=== PATIENT | male | born 1980 | race Caucasian/White ===

== ENCOUNTER 2024-08-01 12:08 | Emergency (ER) | payer BC, SELFPAY ==
[2024-08-01] VITALS (7 sets, daily range): BP systolic 160–181; BP diastolic 104–115; BMI 24.7
[2024-08-01 12:30] LABS: % Basophils 0.4 % (0-2); % Eosinophils 2.3 % (0-6); % Immature Granulocytes 0.1 % (0-0.5); % Lymphocytes 24.4 % (20.5-51.1); % Monocytes 9.5 % (1.7-9.3); % Neutrophils 63.3 % (42.2-75.2); Absolute Eosinophils 0.2 10^3/uL (0-0.7); Absolute Lymphocytes 1.7 10^3/uL (1.2-3.4); Absolute Monocytes 0.7 10^3/uL (0.1-0.6); Absolute Neutrophils 4.5 10^3/uL (1.4-6.5); Hematocrit 33.3 % (39.0-52.0); Hemoglobin 12.4 g/dL (13.0-18.0); Mean Corp Hgb Conc. 37.2 g/dL (33.0-37.0); Mean Corpuscular Hgb 31.9 pg (27.0-31.0); Mean Corpuscular Volume 85.6 fL (80.0-94.0); Mean Platelet Volume 8.9 fL (7.4-10.4); Nucleated Red Blood Cells % 0 % (-); Platelet Count 232 10^3/uL (130-400); Red Blood Cell Count 3.89 10^6/uL (4.70-6.10); Red Cell Dist. Width 12.3 % (11.5-14.5); White Blood Cell Count 7.1 10^3/uL (4.8-10.8)
[2024-08-01 12:49] LABS: ALT (SGPT) 33 U/L (0-50); AST (SGOT) 36 U/L (17-59); Albumin 4.2 g/dl (3.5-5.0); Alkaline Phosphatase 64 U/L (38-126); Blood Urea Nitrogen 29 mg/dl (9-20); Calcium 12.9 mg/dl (8.4-10.2); Carbon Dioxide 33 mmol/L (22-30); Chloride 99 mmol/L (98-107); Glucose 114 mg/dl (70-99); Potassium 3.9 mmol/L (3.5-5.1); Sodium 137 mmol/L (135-145); Total Bilirubin 0.6 mg/dl (0.2-1.3); Total Protein 6.8 g/dl (6.3-8.2); eGFR 41.95
[2024-08-01] MEDS: REGLAN 10 MG IV (13:49)
[2024-08-01] MEDS: NSS 1000 IV (13:49)
--- NOTE | 2024-08-01 13:58 | ED.GENMED ---
History of Present Illness
General
Chief Complaint: Blood Pressure Problem
Source: patient
Exam Limitations: none
Time Seen by Provider: 08/01/24 13:15
Nursing documentation reviewed up to this point in time: agreed with
History of Present Illness
History of Present Illness:
43-year-old male presenting to the emergency department today with concerns of lightheadedness headache has been ongoing for about a week. Initially seemed like a viral syndrome that he got from his child 1 week ago. Symptoms seem to be improving
headache is improving also. Denies any chest pain shortness of breath any changes in bowel movements. Has been drinking plenty of fluids.
Review of Systems
Review of Systems
Allergies reviewed?: Yes
All Other Systems: ROS reviewed and negative except as documented in HPI and ROS
Phy Exam
Physical Exam
Physical Exam:
GENERAL: Alert , in no apparent distress
EYE: pupils equal and reactive
NECK: Supple, no significant adenopathy.
ENT: o/p clr, mmm.
CARDIAC: Regular rate and rhythm .
LUNGS: Clear breath sounds bilaterally, no acute respiratory distress, no wheezes/rales/rhonchi
ABDOMEN: Soft, without focal tenderness, no r/g, no cvat
NEUROLOGICAL: Alert and oriented, no focal neuro deficits
SKIN: Warm and dry, skin intact.
MUSCULOSKELETAL: No edema, well perfused.
PSYCH: Normal and appropriate interaction.
Course
Orders/Labs/Results
Orders:
Orders
08/01/24 12:15
Electrocardiogram (*1) Urgent
Reason for Study: Hypertension, Benign
EKG- Treatment ONCE
08/01/24 12:24
Complete Blood Count/With Diff Urgent
Comprehensive Metabolic Panel Urgent
08/01/24 13:27
0.9% Sodium Chloride 1000 ml [Nss] 1,000 ml IV BOLUS
Metoclopramide [Reglan] 10 mg IV NOW STA
08/01/24 14:46
Urinalysis Reflex To Culture Urgent
Date Specimen was Collected: 08/01/24
Time Specimen was Collected: 14:34
Urine Microscopic Reflex Cult Urgent
Urine Culture Urgent
GINA Source: U
Specimen Description:
Date Specimen was Collected: 08/01/24
Time Specimen was Collected: 14:34
08/01/24 15:20
CT Head W/o Iv Contrast Urgent
Comment:
Reason For Exam: left headache blurred vision
08/01/24 15:30
Amlodipine [Norvasc] 5 mg PO ONCE ONE
08/01/24 15:33
Visual Acuity- Treatment ONCE
Abnormal Lab Results
08/01/24 08/01/24
12:24 14:46
RBC 3.89 L 10^6/uL
(4.70-6.10)
Hgb 12.4 L g/dL
(13.0-18.0)
Hct 33.3 L %
(39.0-52.0)
MCH 31.9 H pg
(27.0-31.0)
MCHC 37.2 H g/dL
(33.0-37.0)
Absolute Monos (auto) 0.7 H 10^3/uL
(0.1-0.6)
Monocytes % 9.5 H %
(1.7-9.3)
Carbon Dioxide 33 H mmol/L
(22-30)
BUN 29 H mg/dl
(9-20)
Creatinine 2.0 H mg/dL
(0.7-1.3)
Glucose 114 H mg/dl
(70-99)
Calcium 12.9 H mg/dl
(8.4-10.2)
Leukocyte Esterase Rfl 1+ A
(Negative)
Urine Bacteria (Reflex) Few A
(Negative)
08/01/24 12:24
08/01/24 12:24
Vital Signs
Initial and Last Documented VS:
Initial Vital Signs
Temp Pulse Resp BP Pulse Ox
98.0 F 95 16 175/104 98
08/01/24 12:13 08/01/24 12:13 08/01/24 12:13 08/01/24 12:13 08/01/24 12:13
Last Documented Vital Signs
Temp Pulse Resp BP Pulse Ox
98.0 F 68 12 174/114 99
08/01/24 12:13 08/01/24 15:51 08/01/24 13:53 08/01/24 15:51 08/01/24 13:53
MDM/Problems Addressed
MDM/Problems Addressed:
43-year-old male presenting to the emergency department today with concerns of elevated blood pressure found in the primary care doctor. Has had upper respiratory symptoms over the past week and somewhat of an ongoing left-sided sinus pressure.
Headache has been improving throughout the day headache is currently very minimal. No nausea vomiting has been drinking plenty of fluids. He admittedly does not follow-up often with the primary care doctor.
*Critical Care Note
Total Time (30-74mins, 75-104mins- exclusive of procedures): Not Applicable
ED Attending Note
-
Portions of this chart may have been created with voice recognition software.� Occasional wrong word or��sound alike� substitutions may have occurred due to the inherent limitations of voice recognition software.
Discharge Plan
Departure
Patient Disposition: Home (Routine Discharge)
Date of Disposition: 08/01/24
Time of Disposition: 17:04
Patient with high blood pressure during this ER visit?: Yes
Condition: Good
Covid-19: Not Applicable
Discharge Problem:
High blood pressure, Headache, Elevated serum creatinine
Instructions: High Blood Pressure (DC)
Prescriptions:
New
amlodipine 5 mg tablet
5 mg PO DAILY 14 Days Qty: 14 0RF
fluticasone propionate [Flonase Allergy Relief] 50 mcg/actuation spray,suspension
1 spray intranasal BID Qty: 16 0RF
No Action
hydrocodone-acetaminophen 1 TABLET tablet
1 - 2 tab PO Q4HPRN PRN (Reason: moderate to severe pain) Qty: 15 0RF
Referrals:
Erickson Gallegos CRNP [Family Provider] -
Activity Restrictions/Additional Instructions:
You came to the emergency department today with concerns of high blood pressure and additional symptoms. Here you had a reassuring assessment but did have elevated renal function test that need to be closely followed up. Please take the prescribed
amlodipine and follow-up with your primary care doctor on Thursday. Return for any worsening, new or concerning symptoms.
Interventions
Interventions:
*Risk Screen - Suicide Last Done: 08/01/24 12:13
*General Assessment Last Done: 08/01/24 13:51
*Neglect/Abuse Screening Last Done: 08/01/24 12:13
ED- Cardiac Assessment Last Done: 08/01/24 13:53
ED- Neurological Assessment Last Done: 08/01/24 13:53
ED- Pulmonary Assessment Last Done: 08/01/24 13:53
Discharge Date and Time
Print Language: BOLIVIAN
[2024-08-01 14:57] LABS: Urine Albumin Negative (Neg - Trace); Urine Bilirubin Negative (Negative); Urine Character Clear (Clear); Urine Glucose Negative (Negative); Urine Ketone Negative (Negative); Urine Leukocyte 1+ (Negative); Urine Nitrite Negative (Negative); Urine Occult Blood Negative (Negative); Urine Specific Gravity 1.015 (<1.030); Urine Urobilinogen Negative (Neg - 1+)
[2024-08-01 15:12] LABS: Urine Red Blood Cell 0-2 /HPF (0-2)
[2024-08-01 15:13] LABS: Urine Bacteria Few (Negative)
[2024-08-01] MEDS: NORVASC 5 MG PO (15:51)
== END 2024-08-01 17:36 | disposition home or self-care (01) ==
LOC: EMR 12:08
PROVIDERS: Emergency Medicine; Physician Assistant; EMERGENCY PHYSICIAN Student in an Organized Health Care Education/Training Program; FAMILY PHYSICIAN Nurse Practitioner Family
DX: R42 Dizziness and giddiness (principal); R51.9 Headache, unspecified
CPT/HCPCS: 99284; 96374; 96361; 70450; 80053; 81003; 81015; 85025; 87086; 93005

== ENCOUNTER → 2024-08-05 13:30 | Outpatient (REF) | payer BC, SELFPAY ==
[2024-08-05 15:18] LABS: % Basophils 0.9 % (0-2); % Eosinophils 2.3 % (0-6); % Immature Granulocytes 0.3 % (0-0.5); % Lymphocytes 23.5 % (20.5-51.1); % Monocytes 9.1 % (1.7-9.3); % Neutrophils 63.9 % (42.2-75.2); Absolute Basophils 0.1 10^3/uL (0-0.2); Absolute Eosinophils 0.2 10^3/uL (0-0.7); Absolute Lymphocytes 1.6 10^3/uL (1.2-3.4); Absolute Monocytes 0.6 10^3/uL (0.1-0.6); Absolute Neutrophils 4.4 10^3/uL (1.4-6.5); Hematocrit 34.1 % (39.0-52.0); Hemoglobin 12.7 g/dL (13.0-18.0); Mean Corp Hgb Conc. 37.2 g/dL (33.0-37.0); Mean Corpuscular Hgb 31.6 pg (27.0-31.0); Mean Corpuscular Volume 84.8 fL (80.0-94.0); Mean Platelet Volume 9.2 fL (7.4-10.4); Nucleated Red Blood Cells % 0 % (-); Platelet Count 312 10^3/uL (130-400); Red Blood Cell Count 4.02 10^6/uL (4.70-6.10); Red Cell Dist. Width 12.2 % (11.5-14.5); White Blood Cell Count 6.9 10^3/uL (4.8-10.8)
[2024-08-05 15:31] LABS: ALT (SGPT) 33 U/L (0-50); AST (SGOT) 29 U/L (17-59); Albumin 5.1 g/dl (3.5-5.0); Alkaline Phosphatase 67 U/L (38-126); Blood Urea Nitrogen 22 mg/dl (9-20); Calcium 11.9 mg/dl (8.4-10.2); Carbon Dioxide 29 mmol/L (22-30); Chloride 97 mmol/L (98-107); Glucose 89 mg/dl (70-99); Iron 98 ug/dl (49-181); Magnesium 1.6 mg/dl (1.6-2.3); Potassium 4.1 mmol/L (3.5-5.1); Sodium 136 mmol/L (135-145); Total Protein 7.4 g/dl (6.3-8.2); eGFR 50.98
[2024-08-05 15:40] LABS: Percent Saturation 31 % (20-50); Total Iron Binding Capacity 309 ug/dl (261-462)
[2024-08-05 15:43] LABS: Vitamin D, 25-OH*** > 126 ng/mL (30-80)
[2024-08-05 15:56] LABS: TSH Reflex To Free T4 1.98 uIU/ml (0.47-4.68)
[2024-08-06 10:49] LABS: Intact PTH 3.7 pg/ml (13.6-85.8)
== END ==
LOC: HWLAB 13:30
PROVIDERS: ATTENDING PHYSICIAN Nurse Practitioner Family
DX: I10 Essential (primary) hypertension (principal); R79.89 Other specified abnormal findings of blood chemistry; E83.52 Hypercalcemia; D64.9 Anemia, unspecified
CPT/HCPCS: 36415; 80053; 82306; 82728; 83540; 83550; 83735; 83970; 84443; 85025